=== PATIENT | male | born 1965 | race Caucasian/White ===

== ENCOUNTER 2017-03-11 14:09 | Emergency (ER) | payer OTHER ==
[~2017-03-11] VITALS: Ht 167.6 cm; Wt 96.6 kg
[2017-03-11 14:49] VITALS: Ht 167.6 cm; Wt 96.6 kg
[2017-03-11 18:40] VITALS: BP 109/66
== END 2017-03-11 18:40 | disposition home or self-care (01) ==
LOC: ED 14:09
DX: J01.90 Acute sinusitis, unspecified (principal); H66.93 Otitis media, unspecified, bilateral; J98.01 Acute bronchospasm